=== PATIENT | female | born 1965 | race Asian ===

== ENCOUNTER 2016-05-18 10:59 | Emergency (ER) | payer BC ==
[~2016-05-18] VITALS: Ht 198.1 cm; Wt 60.8 kg
[2016-05-18 11:03] VITALS: BP 104/74
--- NOTE | 2016-05-18 11:18 | NUR ---
51/F BIB FAMILY C/O LEFT ANKLE INJURY. PT STATES A PART OF THE KITCHEN COUNTER (GRANITE) FALL ON PATIENT'S LEFT LEG/ANKLE. POS SWELLING, DEFORMITY, BLEEDING, LIMITED ROM. <3 SEC CAP REFILL, POS ROM DISTAL TO INJURY SITE. AAOX4 UNSTEADY GAIT AMBUALTES WITH W/C; LUNGS CLEAR BL; HR EVEN AND REGULAR; PT DENIES ANY FEVER, CP OR SOB AT THIS TIME; PATIENT STATES PAIN OF 10/10 AT THIS TIME; VSS; PATIENT POSITIONED FOR COMFORT; HOB ELEVATED; BEDRAILS UP X2; BED DOWN. ER MD MADE AWARE OF PT STATUS.
--- NOTE | 2016-05-18 11:18 | NUR ---
Patient wheelchair assisted to bed 5
[2016-05-18] MEDS ORDERED: MORPHINE SULFATE 2 MG/ML SYR IVP ONE (11:20)
[2016-05-18] MEDS ORDERED: ONDANSETRON 4 MG/2 ML VIAL IVP ONE (11:20)
[2016-05-18] MEDS ORDERED: PIPERACILLIN/TAZOBACTAM 3.375 GM in DEXTROSE 5% 50 ML IV ONE (11:20)
[2016-05-18] MEDS ORDERED: NACL 0.9% 1,000 ML IV ONE (11:20)
[2016-05-18] MEDS ORDERED: PIPERACILLIN/TAZOBACTAM 3.375 GM VIAL IV ONE (11:33)
[2016-05-18 11:45] LABS: BASOPHILS # (AUTO) 0.1 K/uL (0.00-0.22); EOSINOPHILS # (AUTO) 0.1 K/uL (0-0.4); EOSINOPHILS % (AUTO) 1.6 % (0.0-4.0); HEMATOCRIT 39.3 % (36-48); HEMOGLOBIN 12.8 g/dL (12.0-16.0); LYMPHOCYTES # (AUTO) 1.3 K/uL (2.5-16.5); MEAN CORPUSCULAR HEMOGLOBIN 30 pg (27-31); MEAN CORPUSCULAR HGB CONC 33 g/dL (33-37); MEAN CORPUSCULAR VOLUME 92 fL (80-94); MONOCYTES # (AUTO) 0.4 K/uL (0.8-1.0); MONOCYTES % (AUTO) 7.3 % (1.7-9.3); NEUTROPHILS # (AUTO) 3.7 K/uL (1.8-7.7); NEUTROPHILS % (AUTO) 66.1 % (42.2-75.2); PLATELET COUNT (AUTO) 176 K/uL (140-450); RED BLOOD CELL COUNT(AUTO) 4.29 MIL/uL (4.20-5.40); RED CELL DISTRIBUTION WIDTH 12.7 % (11.6-13.7); WHITE BLOOD COUNT (AUTO) 5.6 K/uL (4.8-10.8)
[2016-05-18] MEDS ORDERED: LIDOCAINE 1% 500 MG/50 ML VIAL INJ ONE (11:45)
[2016-05-18 11:57] LABS: ANION GAP 9.7 (8-16); CARBON DIOXIDE 29.5 mmol/L (21-32); CREATININE 0.7 mg/dL (0.6-1.3); POTASSIUM 4.2 mmol/L (3.5-5.1)
[2016-05-18 11:59] LABS: PARTIAL THROMBOPLASTIN TIME 27.5 secs (22-35.6); PROTHROMBIN TIME 9.9 secs (10.8-13.4)
[2016-05-18 12:04] LABS: ALBUMIN 4.1 g/dL (3.4-5.0); TOTAL BILIRUBIN 0.3 mg/dL (0.0-1.0); TOTAL PROTEIN, SERUM 7.7 g/dL (6.4-8.2)
--- NOTE | 2016-05-18 12:26 | NUR ---
GAVE REPORT TO RN KURT /[facility]
[2016-05-18 12:51] VITALS: BP 114/71
--- NOTE | 2016-05-18 12:51 | NUR ---
Patient to be transferred to [facility]. Is being transferred due to HIGH LEVEL. Receiving facility has accepting physician and available space. ER physician has signed transfer form. Patient or responsible constitution party has agreed to transfer and signed form. Patient belongings inventoried and will be sent with patient. Copy of nursing notes, lab reports, EKG, Physicians Orders and X-rays to be sent with patient. Report called to [RN KURT at receiving facility. ambulance service has been called for transfer.
== END 2016-05-18 12:51 | disposition short-term general hospital (02) ==
LOC: MED 10:59
DX: S89.302A Unspecified physeal fracture of lower end of left fibula, initial encounter for closed fracture (principal); W20.8XXA Other cause of strike by thrown, projected or falling object, initial encounter; Y93.89 Activity, other specified; Y92.89 Other specified places as the place of occurrence of the external cause; Y99.8 Other external cause status
CPT/HCPCS: 12001; 36415; 73610; 80053; 85025; 85610; 85730; 90471; 90715; 96365; 96375; 99285; J2001; J2270; J2405; J2543; J7030; J7060